=== PATIENT | female | born 2000 | race Caucasian/White ===

== ENCOUNTER 2021-11-14 14:49 | Emergency (ER) | payer BC, OTHER ==
[2021-11-14] MEDS: Ondansetron 4 MG/2 ML SDV ONE (15:09)
[2021-11-14] MEDS: Sodium Chloride 0.9% 1,000 ML IV ONE (15:09)
[2021-11-14] MEDS: Ondansetron 4 MG/2 ML SDV IVPUSH ONE (15:09)
[2021-11-14] MEDS: Sodium Chloride 0.9% 10 ML Syringe FLUSH PRN (15:10)
[2021-11-14] MEDS: Pantoprazole 40 MG Vial IVPUSH ONE (16:10)
== END 2021-11-14 16:54 | disposition home or self-care (01) ==
LOC: FB.ED 14:49
DX: K29.70 Gastritis, unspecified, without bleeding (principal); K21.00 Gastro-esophageal reflux disease with esophagitis, without bleeding; E87.2 Acidosis; R11.2 Nausea with vomiting, unspecified; F10.10 Alcohol abuse, uncomplicated; Y90.5 Blood alcohol level of 100-119 mg/100 ml
CPT/HCPCS: 80053; 80307; 81001; 85025; 96374; 96375; 99283; 99284-25; C9113; J2405; J7030

== ENCOUNTER 2022-01-14 06:49 | Day surgery (SDC) | payer OTHER ==
[~2022-01-14 06:49] MED LIST: Sodium Chloride 0.9% 10 ML Syringe FLUSH PRN
[2022-01-14] MEDS ORDERED: Lidocaine 2% 100 MG/5 ML Syringe IVPUSH ONE (06:50)
[2022-01-14] MEDS ORDERED: Propofol 200 MG/20 ML SDV IV ONE (06:50)
[2022-01-14] MEDS ORDERED: Midazolam 1 MG/ML 2 ML SDV IV ONE (06:50)
[2022-01-14] MEDS: Lactated Ringers 1,000 ML IV SCH (07:43)
== END 2022-01-14 09:55 | disposition home or self-care (01) ==
LOC: FB.SDS 06:49
PROVIDERS: ATTEND Surgery
DX: K31.89 Other diseases of stomach and duodenum (principal); K29.70 Gastritis, unspecified, without bleeding; R05.9 Cough, unspecified; Z79.899 Other long term (current) drug therapy
CPT/HCPCS: 00731-QZ; 81025; 88305; 88342; J2250; J2704; J7120